=== PATIENT | male | born 1990 | race African-American/Black ===

== ENCOUNTER 2017-01-23 21:20 | Emergency (ER) | payer BC, OTHER ==
[2017-01-23 21:42] VITALS: BP 113/62
--- NOTE | 2017-01-23 21:49 | EDM.PDOC ---
<Chano Kathleen - Last Filed: 01/25/17 17:09> ED HPI GENERAL MEDICAL PROBLEM - General Chief Complaint: Genitourinary Problem Stated Complaint: WIERD FEELING IN PENIS Time Seen by Provider: 01/23/17 21:54 - Related Data Allergies Allergy/AdvReac Type Severity Reaction Status Date / Time No Known Allergies Allergy Verified 01/23/17 21:32 Home Meds: Home Meds valACYclovir [Valtrex] 1,000 mg PO BID #14 tablet 01/23/17 [Rx] Course - Vital Signs Last Recorded V/S: Last Vital Signs Temp 36.3 C 01/23/17 21:30 Pulse 71 01/23/17 21:30 Resp 16 01/23/17 21:30 BP 113/62 01/23/17 21:40 Pulse Ox 97 01/23/17 21:30 - Orders/Labs/Meds Labs: Laboratory Tests 01/23/17 Range/Units 21:51 C trachomatis DNA (PCR) Not detected N gonorrhoeae DNA (PCR) Not detected - Re-Assessments/Exams Free Text/Narrative Re-Assessment/Exam: 01/25/17 17:09 I called the patient twice to give him the results. He finally called back after a few hours and I informed him he had herpes simplex 2 and that he should keep taking the valacyclovir. I also told him not to have intercourse until this is gone. I also told him this may flair up at times and he should be treated when it does. Departure - Departure Disposition: Home, Self-Care 01 Clinical Impression: Herpes genitalia - Discharge Information Prescriptions: valACYclovir [Valtrex] 1,000 mg PO BID #14 tablet Referrals: Toy Moran Jr, MD [Primary Care Provider] - Forms: ED Department Discharge Additional Instructions: take the Valtrex as prescribed. 1 tab twice a day for 7 days. May call the ER in about 5-7 days. At that time we should have results of your tests. Please call [phone]. Physician to the ER if your symptoms change or worsen. <Cesia Hassan - Last Filed: 01/26/17 09:01> ED HPI GENERAL MEDICAL PROBLEM - General Source of Information: Reports: Patient History Limitations: Reports: No Limitations - History of Present Illness INITIAL COMMENTS - FREE TEXT/NARRATIVE: 26-year-old male presents for evaluation treatment of burning to the penis. Patient reports the symptoms have been present for the last 2 days. He states that it is worse when he is showering. He has appreciated some penile discharge today. He reports that he had some discharge after urinating which was clear. Denies any dysuria. Patient is sexually active. He denies any recent intercourse. Reports that he was tested along with his partner for STDs about 4 months ago. States that this was unremarkable. Reports that he recently had sexual contacts in the form of touching but no oral intercourse or penetration recently. Past Medical History - Past Health History Medical/Surgical History: Denies Medical/Surgical History Social & Family History - Tobacco Use Smoking Status *Q: Former Smoker Used Tobacco, but Quit: Yes Month Tobacco Last Used: November - Caffeine Use Caffeine Use: Reports: Coffee - Recreational Drug Use Recreational Drug Use: No ED ROS GENERAL - Review of Systems Review Of Systems: See Below Constitutional: Denies: Fever, Chills GI/Abdominal: Denies: Nausea, Vomiting : Reports: Discharge (reports clear penile discharge after urination 1 time today), Other (reports a burning sensation to the penis). Denies: Dysuria Skin: Reports: Lesions (to the dorsal penis at the neck of the glans) ED EXAM, RENAL/ - Physical Exam Exam: See Below Exam Limited By: No Limitations General Appearance: Alert, WD/WN, No Apparent Distress Respiratory/Chest: No Respiratory Distress, Lungs Clear, Normal Breath Sounds Cardiovascular: Normal Peripheral Pulses, Regular Rate, Rhythm, No Murmur (Male) Exam: Penile Lesions (4-5 approximately 2-4 mm in diameter lesions to the neck of the glans on the dorsal penis; suspicious for open herpetic lesions) , Other (patient is africian english, difficult to appreciated erythema to the lesions) Neurological: Alert, Normal Cognition Skin Exam: Warm, Dry, Normal Color Course - Orders/Labs/Meds Labs: Laboratory Tests 01/23/17 Range/Units 21:51 C trachomatis DNA (PCR) Not detected N gonorrhoeae DNA (PCR) Not detected - Re-Assessments/Exams Free Text/Narrative Re-Assessment/Exam: 01/24/17 22:00 Lesions suspicious for herpes simplex. GC/chlamydia testing also preformed due to penile discharge. Additional testing was offered but declined since he had testing recently. Will notify patient with results, number givne to call if he does not hear from us. Will start valtrex for herpes. Discharge instructions as documented. Departure - Departure Time of Disposition: 22:06 Condition: Fair
[2017-01-24 00:04] LABS: C. TRACHOMATIS BY PCR NOT DETECTED; N. GONORRHOEAE BY PCR NOT DETECTED
== END 2017-01-23 22:10 | disposition home or self-care (01) ==
LOC: JD.ED 21:20
DX: A60.00 Herpesviral infection of urogenital system, unspecified (principal); Z87.891 Personal history of nicotine dependence
CPT/HCPCS: 87491; 87591; 87801; 99283

== ENCOUNTER 2017-02-21 17:37 | Emergency (ER) | payer OTHER ==
[2017-02-21 18:04] VITALS: BP 111/70
--- NOTE | 2017-02-21 18:16 | EDM.PDOC ---
ED HPI GENERAL MEDICAL PROBLEM - General Chief Complaint: Skin Complaint Stated Complaint: Rash to genital region Time Seen by Provider: 02/21/17 18:00 Source of Information: Reports: Patient, RN Notes Reviewed History Limitations: Reports: No Limitations - History of Present Illness INITIAL COMMENTS - FREE TEXT/NARRATIVE: 26 year old male presents to the ED with complaints of discomfort and 1 lesion to his penis. He has a history of genital herpes and feels he is having an outbreak. This will be his first outbreak since diagnosis. The symptoms started today. He has taken valacyclovir in the past for HSV. No dysuria or penile discharge. - Related Data Allergies Allergy/AdvReac Type Severity Reaction Status Date / Time No Known Allergies Allergy Verified 02/21/17 18:04 Home Meds: Home Meds valACYclovir [Valtrex] 500 mg PO BID #6 tablet 02/21/17 [Rx] Past Medical History - Past Health History Medical/Surgical History: Denies Medical/Surgical History Social & Family History - Tobacco Use Smoking Status *Q: Never Smoker Used Tobacco, but Quit: Yes Month Tobacco Last Used: November - Caffeine Use Caffeine Use: Reports: Coffee - Recreational Drug Use Recreational Drug Use: No ED ROS GENERAL - Review of Systems Review Of Systems: See Below Constitutional: Reports: No Symptoms. Denies: Fever Respiratory: Reports: No Symptoms Cardiovascular: Reports: No Symptoms Skin: Reports: Rash ED EXAM, SKIN/RASH Exam: See Below Exam Limited By: No Limitations General Appearance: Alert, WD/WN, No Apparent Distress (Male) Exam: Circumcised, Penile Lesions (one small, round, red lesion to the base of the glans consistent with HSV). No: Inguinal Lymphadenopathy Neurological: Alert, Oriented, Normal Cognition Course - Vital Signs Last Recorded V/S: Last Vital Signs Temp 98.5 F 02/21/17 17:46 Pulse 70 02/21/17 17:46 Resp 18 02/21/17 17:46 BP 111/70 02/21/17 17:46 Pulse Ox 98 02/21/17 17:46 Departure - Departure Time of Disposition: 18:14 Disposition: Home, Self-Care 01 Condition: Good Clinical Impression: Herpes genitalia Qualifiers: Herpes simplex infection site: penis Qualified Code(s): A60.01 - Herpesviral infection of penis - Discharge Information Prescriptions: valACYclovir [Valtrex] 500 mg PO BID #6 tablet Instructions: Genital Herpes Referrals: PCP,None [Primary Care Provider] - Forms: ED Department Discharge Additional Instructions: Follow-up in clinic if not improved in 2-3 days Valacyclovir 500mg twice a day for 3 days Tylenol or Motrin as needed for pain
== END 2017-02-21 18:36 | disposition home or self-care (01) ==
LOC: JD.ED 17:37
DX: A60.01 Herpesviral infection of penis (principal)
CPT/HCPCS: 99283

== ENCOUNTER 2017-06-25 08:46 | Emergency (ER) | payer OTHER ==
[2017-06-25 09:01] VITALS: BP 115/57
--- NOTE | 2017-06-25 09:14 | EDM.PDOC ---
ED HPI GENERAL MEDICAL PROBLEM - General Chief Complaint: Skin Complaint Stated Complaint: LEFT LEG PAIN Time Seen by Provider: 06/25/17 09:02 Source of Information: Reports: Patient History Limitations: Reports: No Limitations - History of Present Illness INITIAL COMMENTS - FREE TEXT/NARRATIVE: The patient noticed a lesion on his left upper lateral leg near his buttock. The pain has gotten worse and the lesion is larger. He has no fever or chills. This is not draining. He has no history of abscesses before. Onset: Gradual Duration: Day(s): (3) Location: Reports: Lower Extremity, Left (Left upper lateral thigh) Quality: Reports: Sharp Severity: Moderate Improves with: Reports: None Worsens with: Reports: None Associated Symptoms: Reports: No Other Symptoms Left Leg Pain Score (Numeric/FACES): 1 - Related Data Allergies Allergy/AdvReac Type Severity Reaction Status Date / Time No Known Allergies Allergy Verified 06/25/17 09:02 Home Meds: Home Meds Doxycycline [Vibramycin] 100 mg PO BID #20 cap 06/25/17 [Rx] Past Medical History - Past Health History Medical/Surgical History: Denies Medical/Surgical History Social & Family History - Tobacco Use Smoking Status *Q: Never Smoker Used Tobacco, but Quit: Yes Month Tobacco Last Used: November - Caffeine Use Caffeine Use: Reports: Coffee - Recreational Drug Use Recreational Drug Use: No ED ROS GENERAL - Review of Systems Review Of Systems: See Below Constitutional: Reports: No Symptoms HEENT: Reports: No Symptoms Respiratory: Reports: No Symptoms Cardiovascular: Reports: No Symptoms Endocrine: Reports: No Symptoms GI/Abdominal: Reports: No Symptoms : Reports: No Symptoms Musculoskeletal: Reports: Other (Lesion to the left lateral proximal thigh) ED EXAM, SKIN/RASH Exam: See Below Exam Limited By: No Limitations General Appearance: Alert, No Apparent Distress Ears: Normal External Exam Nose: Normal Inspection Head: Atraumatic, Normocephalic Neck: Normal Inspection Respiratory/Chest: No Respiratory Distress Extremities: Other (Cutaneous abscess to the left lateral proximal thigh that is not fluctuent) Course - Vital Signs Last Recorded V/S: Last Vital Signs Temp 97.1 F 06/25/17 08:50 Pulse 60 06/25/17 08:50 Resp 16 06/25/17 08:50 BP 115/57 L 06/25/17 08:50 Pulse Ox 97 06/25/17 08:50 - Re-Assessments/Exams Free Text/Narrative Re-Assessment/Exam: 06/25/17 09:12 The patient has a cutaneous abscess that is not ready to drain yet. I will get him on some doxycycline. Departure - Departure Time of Disposition: 09:15 Disposition: Home, Self-Care 01 Condition: Good Clinical Impression: Cutaneous abscess of left lower extremity - Discharge Information Prescriptions: Doxycycline [Vibramycin] 100 mg PO BID #20 cap Referrals: PCP,Not In Area [Primary Care Provider] - Fidelia Catherine PA-C [Physician [employer] Form Operator] - 1 Week Additional Instructions: Take the doxycycline 2 times per day for 10 days. Put warm compresses on the abscess at least 3 times per day. Please return if you are worse.
== END 2017-06-25 09:27 | disposition home or self-care (01) ==
LOC: JD.ED 08:46
DX: L02.416 Cutaneous abscess of left lower limb (principal)
CPT/HCPCS: 99283